=== PATIENT | female | born 1995 | race Two or more races ===

== ENCOUNTER 2021-02-08 07:23 | Inpatient (IN) | payer OTHER ==
[~2021-02-08] VITALS: Ht 162.6 cm; Wt 73.0 kg
[2021-02-08] MEDS ORDERED: METOCLOPRAMIDE 5 MG/ML, 2ML IV ONE (08:30)
[2021-02-08] MEDS ORDERED: LACTATED RINGERS 1,000 ML IVBOLUS ONE (08:30)
[2021-02-08] MEDS ORDERED: SODIUM CITRATE/CITRIC ACID 30 ML UDC PO ONE (08:30)
[2021-02-08 08:33] LABS: BASOPHILS % (AUTO) 1 % (0-1); EOSINOPHILS % (AUTO) 2 % (1-7); LYMPHOCYTES % (AUTO) 21 % (22-44); MEAN CORPUSCULAR HEMOGLOBIN 26.2 pg (27.0-34.8); MEAN CORPUSCULAR HGB CONC 33.4 g/dL (32.4-35.8); MONOCYTES % (AUTO) 7 % (2-9); NEUTROPHILS % (AUTO) 70 % (42-75); PLATELET COUNT 305 x10^3/uL (130-400); RED BLOOD COUNT 4.13 x10^6/uL (3.82-5.3); RED CELL DISTRIBUTION WIDTH 14.1 % (9.6-15.2)
[2021-02-08] MEDS ORDERED: NEWBORN KIT ONE (08:47)
[2021-02-08] MEDS ORDERED: SODIUM CITRATE/CITRIC ACID 15 ML UDC ONE (08:48)
[2021-02-08] MEDS ORDERED: OXYTOCIN 30U/ 0.9% NaCL 500ML 500 ML ONE (08:48)
[2021-02-08] MEDS ORDERED: AMPICILLIN 2 GM in SODIUM CHLORIDE 0.9% 100 ML IV ONE (09:30)
[2021-02-08] MEDS ORDERED: KETOROLAC 30 MG/1 ML ONE (11:26)
[2021-02-08] MEDS ORDERED: CEFAZOLIN 1,000 MG ONE (11:26)
[2021-02-08] MEDS ORDERED: ONDANSETRON 2MG/ML, 2ML ONE (11:26)
[2021-02-08] MEDS ORDERED: DEXAMETHASONE 4 MG/ML, 1ML ONE (11:26)
[2021-02-08] MEDS ORDERED: FENTANYL PF 100 MCG/2ML ONE (11:26)
[2021-02-08] MEDS ORDERED: EPHEDRINE 50 MG/ML, 1ML ONE (11:26)
[2021-02-08] MEDS ORDERED: PHENYLEPHRINE 10 MG/ML ONE (11:26)
[2021-02-08] MEDS ORDERED: OXYTOCIN 10 UNITS/ML, 1ML ONE (11:26)
[2021-02-08] MEDS ORDERED: FENTANYL PF 100 MCG/2ML IV PRN (11:30)
[2021-02-08] MEDS ORDERED: OXYcodone 5 MG/5 ML ORAL.SOL UDC PO PRN (11:30)
[2021-02-08] MEDS ORDERED: PROMETHAZINE 25 MG/ML, 1ML IV PRN (11:30)
[2021-02-08] MEDS ORDERED: LABETALOL 5MG/ML, 20ML IV PRN (11:30)
[2021-02-08] MEDS ORDERED: HYDROmorphone 2 MG/ML, 1ML IVPush PRN (11:30)
[2021-02-08] MEDS ORDERED: ONDANSETRON 2MG/ML, 2ML IVPush PRN (11:30)
[2021-02-08] MEDS ORDERED: EPHEDRINE 50 MG/ML, 1ML IVPush PRN (11:30)
[2021-02-08] MEDS ORDERED: ALBUTEROL SULFATE 2.5 MG/3 ML NPPB PRN (11:30)
[2021-02-08] MEDS ORDERED: MIDAZOLAM 1 MG/ML, 2ML IV PRN (11:30)
[2021-02-08] MEDS ORDERED: HYDROcodone/APAP 7.5-325MG/15ML UDC PO PRN (11:30)
[2021-02-08] MEDS ORDERED: METOPROLOL 1 MG/ML, 5ML IV PRN (11:30)
[2021-02-08] MEDS ORDERED: hydrALAzine 20 MG/ML, 1ML IV PRN (11:30)
[2021-02-08] MEDS ORDERED: IBUPROFEN 600 MG TABLET PO PRN (12:30)
[2021-02-08] MEDS ORDERED: SIMETHICONE 80 MG CHEW TAB PO PRN (12:30)
[2021-02-08] MEDS ORDERED: ONDANSETRON 2MG/ML, 2ML IV PRN (12:30)
[2021-02-08] MEDS ORDERED: CARBOPROST TROMETHAMINE 250 MCG/ML, 1ML IM PRN (12:30)
[2021-02-08] MEDS ORDERED: METHYLERGONOVINE 0.2 MG/ML IM PRN (12:30)
[2021-02-08] MEDS ORDERED: OXYcodone/APAP 5/325MG TABLET PO PRN (12:30)
[2021-02-08] MEDS ORDERED: MORPHINE SULFATE 4 MG/ML, 1ML IVPush PRN (12:30)
[2021-02-08] MEDS ORDERED: morphine SULFATE 10 MG/ML, 1ML IVPush PRN (12:30)
[2021-02-08] MEDS ORDERED: MISOPROSTOL 200 MCG TABLET PR PRN (12:30)
[2021-02-08] MEDS: LACTATED RINGERS 1,000 ML IV SCH ×4 (12:30→22:30)
[2021-02-08] MEDS ORDERED: HYDROmorphone 2 MG/ML, 1ML ONE (12:31)
[2021-02-08] MEDS ORDERED: MEPERIDINE/PF 50 MG/ML ONE (13:34)
[2021-02-08] MEDS: MEPERIDINE/PF 25MG/0.5ML IVPush PRN ×2 (13:36→13:59)
[2021-02-08] MEDS: OXYTOCIN 30U/ 0.9% NaCL 500ML 500 ML IV SCH ×2 (13:40→22:30)
[2021-02-08 15:20] VITALS: BP 115/75
[2021-02-08] MEDS: OXYcodone/APAP 5/325MG TABLET PO PRN ×2 (17:09→21:29)
[2021-02-08 19:45] VITALS: BP 123/77
[2021-02-08] MEDS: KETOROLAC 30 MG/1 ML IVPush SCH (19:55)
[2021-02-08] MEDS: DOCUSATE 100 MG CAPSULE PO PRN (19:55)
[2021-02-08 21:09] LABS: BASOPHILS % (AUTO) 1 % (0-1); EOSINOPHILS % (AUTO) 0 % (1-7); LYMPHOCYTES % (AUTO) 12 % (22-44); MEAN CORPUSCULAR HEMOGLOBIN 25.8 pg (27.0-34.8); MEAN CORPUSCULAR HGB CONC 32.6 g/dL (32.4-35.8); MEAN PLATELET VOLUME 8.4 fL (7.4-10.4); MONOCYTES % (AUTO) 3 % (2-9); NEUTROPHILS % (AUTO) 85 % (42-75); PLATELET COUNT 309 x10^3/uL (130-400); RED CELL DISTRIBUTION WIDTH 14.3 % (9.6-15.2)
[2021-02-09 00:10] VITALS: BP 91/52
[2021-02-09] MEDS: KETOROLAC 30 MG/1 ML IVPush SCH ×3 (01:54→13:30)
[2021-02-09 04:15] VITALS: BP 115/73
[2021-02-09] MEDS: LACTATED RINGERS 1,000 ML IV SCH ×5 (04:30→20:30)
[2021-02-09] MEDS: OXYcodone/APAP 5/325MG TABLET PO PRN ×2 (05:11→09:42)
[2021-02-09 08:00] VITALS: BP 107/65
[2021-02-09] MEDS: OXYTOCIN 30U/ 0.9% NaCL 500ML 500 ML IV SCH ×2 (08:30→18:30)
[2021-02-09] MEDS: DOCUSATE 100 MG CAPSULE PO PRN (09:40)
[2021-02-09] MEDS: PRENATAL VIT/IRON/FA 1 EACH TABLET PO SCH (09:40)
[2021-02-09 19:15] VITALS: BP 122/78
[2021-02-10] MEDS: OXYcodone/APAP 5/325MG TABLET PO PRN ×3 (00:44→14:20)
[2021-02-10] MEDS: LACTATED RINGERS 1,000 ML IV SCH ×2 (03:58)
[2021-02-10] MEDS: OXYTOCIN 30U/ 0.9% NaCL 500ML 500 ML IV SCH (03:59)
[2021-02-10 08:00] VITALS: BP 127/81
[2021-02-10] MEDS: DOCUSATE 100 MG CAPSULE PO PRN (08:12)
[2021-02-10] MEDS: PRENATAL VIT/IRON/FA 1 EACH TABLET PO SCH (08:21)
[2021-02-10] MEDS ORDERED: DOCU-131 PO (10:55)
[2021-02-10] MEDS ORDERED: IBUP-1222 PO (10:55)
[2021-02-10] MEDS ORDERED: OXYC1TAB12 PO (10:55)
== END 2021-02-10 14:55 | disposition home or self-care (01) | DRG 788 ==
LOC: LDOP 07:23 → LDIP 08:21 → 2NW 15:10
PROVIDERS: ADMIT Obstetrics & Gynecology; ATTEND Obstetrics & Gynecology
PROC: 10D00Z1 Extraction of Products of Conception, Low, Open Approach (ICD-10-PCS; principal; 2021-02-08)
DX: O32.1XX0 Maternal care for breech presentation, not applicable or unspecified (principal); O99.824 Streptococcus B carrier state complicating childbirth; O42.913 Preterm premature rupture of membranes, unspecified as to length of time between rupture and onset of labor, third trimester; Z20.822 Contact with and (suspected) exposure to COVID-19; N83.8 Other noninflammatory disorders of ovary, fallopian tube and broad ligament; O34.83 Maternal care for other abnormalities of pelvic organs, third trimester; Z37.0 Single live birth; Z3A.36 36 weeks gestation of pregnancy
CPT/HCPCS: 36415; 76815; 84112; 85025; 86592; 86850; 86900; 87635; G0378; J0290; J0690; J1100; J1170; J1885; J2175; J2405; J3010; J2370; J2590; J2765; J7120